=== PATIENT | female | born 1980 | race American Indian/Alaskan Native ===

== ENCOUNTER 2016-09-01 08:01 | Emergency (ER) | payer MEDICAID, OTHER ==
[2016-09-01] MEDS ORDERED: Sodium Chloride 0.9% 10 ML Syringe FLUSH PRN (08:21)
[2016-09-01] MEDS ORDERED: Sodium Chloride 0.9% 1,000 ML IV ONE (08:28)
[2016-09-01] MEDS ORDERED: Ondansetron 4 MG/2 ML SDV IV ONE (08:29)
--- NOTE | 2016-09-01 08:34 | EDM.PDOC ---
ED HPI GENERAL MEDICAL PROBLEM - General Chief Complaint: Gastrointestinal Problem Stated Complaint: SICK Time Seen by Provider: 09/01/16 08:29 Source of Information: Reports: Patient History Limitations: Reports: No Limitations - History of Present Illness INITIAL COMMENTS - FREE TEXT/NARRATIVE: Pt states that she has been having nausea and vomiting since Wednesday. States that she was seen in the ER in [facility] on that date and was sent home with zofran but is having no relief with that medication. States that she usually has these symptoms with alcohol use and eating fast food which she has done this weekend. Denies severe pain but states she has ache in her abdomen from the vomiting. c/o dark urine as well. No other complaints. 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) (zofran) Upper Abdominal Pain Score (Numeric/FACES): 5 - Related Data Allergies Allergy/AdvReac Type Severity Reaction Status Date / Time amoxicillin [Amoxicillin] Allergy Rash Verified 09/01/16 08:07 Home Meds: Home Meds Ondansetron [Zofran ODT] 4 mg PO Q6H PRN #25 tab.dis 10/14/15 [Rx] Past Medical History HEENT History: Reports: Impaired Vision Other HEENT History: wears glasses Cardiovascular History: Reports: Hypertension Respiratory History: Reports: None Gastrointestinal History: Reports: None Genitourinary History: Reports: None 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 Musculoskeletal History: Reports: None Neurological History: Reports: None Psychiatric History: Reports: Anxiety, Panic Attack Endocrine/Metabolic History: Reports: Obesity/BMI 30+ Hematologic History: Reports: None Immunologic History: Reports: None Oncologic (Cancer) History: Reports: None Dermatologic History: Reports: None - Infectious Disease History Infectious Disease History: Reports: Chicken Pox - Past Surgical History Head Surgeries/Procedures: Reports: None GI Surgical History: Reports: Cholecystectomy Social & Family History - Family History Family Medical History: Noncontributory - Tobacco Use Smoking Status *Q: Former Smoker Years of Tobacco use: 7 Packs/Tins Daily: 0.1 Used Tobacco, but Quit: Yes Month Tobacco Last Used: ? Second Hand Smoke Exposure: No - Caffeine Use Caffeine Use: Reports: Soda - Alcohol Use Days Per Week of Alcohol Use: 1 Number of Drinks Per Day: 4 Total Drinks Per Week: 4 Date of Last Drink: 08/29/16 - Recreational Drug Use Recreational Drug Use: Yes Drug Use in Last 12 Months: Yes Recreational Drug Type: Reports: Marijuana/Hashish Recreational Drug Use Frequency: Weekly - Sexual History Sexual History: Reports: Sexually Active - Living Situation & Occupation Living situation: Reports: with Significant Other Occupation: Employed ED ROS GENERAL - Review of Systems Review Of Systems: ROS reveals no pertinent complaints other than HPI. ED EXAM, GI/ABD - Physical Exam Exam: See Below Exam Limited By: No Limitations General Appearance: Alert, WD/WN, No Apparent Distress Eyes: Bilateral: Normal Appearance, EOMI Throat/Mouth: Normal Inspection, Normal Lips, Normal Teeth, Normal Gums, Normal Oropharynx, Normal Voice, No Airway Compromise Respiratory/Chest: No Respiratory Distress, Lungs Clear, Normal Breath Sounds, No Accessory Muscle Use, Chest Non-Tender Cardiovascular: Normal Peripheral Pulses, Regular Rate, Rhythm, No Edema, No Gallop, No JVD, No Murmur, No Rub GI/Abdominal: Normal Bowel Sounds, Soft, No Organomegaly, No Distention, No Abnormal Bruit, No Mass, Tenderness (supra pubic area) Neurological: Alert, Oriented, CN II-XII Intact, Normal Cognition, Normal Gait, Normal Reflexes, No Motor/Sensory Deficits Course - Vital Signs Last Recorded V/S: Last Vital Signs Temp 97.5 F 09/01/16 08:08 Pulse 80 09/01/16 12:00 Resp 16 09/01/16 12:00 BP 133/71 09/01/16 12:00 Pulse Ox 100 09/01/16 12:00 - Orders/Labs/Meds Orders: Active Orders 24 hr Category Date Time Status Oral Fluid Challenge [RC] ASDIRECTED Care 09/01/16 12:03 Active Abdomen Pelvis w Cont [CT] Urgent Exams 09/01/16 08:21 Taken Sodium Chloride 0.9% [Saline Flush] Med 09/01/16 08:21 Active 10 ml FLUSH ASDIRECTED PRN Saline Lock Insert [OM.PC] Stat Oth 09/01/16 08:21 Ordered Medication Orders Sodium Chloride (Saline Flush) 10 ml FLUSH ASDIRECTED PRN PRN Reason: Keep Vein Open Last Admin: 09/01/16 08:42 Dose: 10 ml Labs: Laboratory Tests 09/01/16 09/01/16 09/01/16 Range/Units 08:33 08:33 08:34 WBC 13.5 H (5.0-10.0) 10^3/uL RBC 5.50 H (4.2-5.4) 10^6/uL Hgb 16.9 H (12.0-16.0) g/dL Hct 47.5 H (37.0-47.0) % MCV 86.4 (80-100) fL MCH 30.7 (27.0-34.0) pg MCHC 35.6 H (33.0-35.0) g/dL Plt Count 254 (150-450) 10^3/uL Neut % (Auto) 77.3 H (42.2-75.2) % Lymph % (Auto) 16.7 L (20.5-50.1) % Nance % (Auto) 5.7 (2-8) % Eos % (Auto) 0.2 L (1.0-3.0) % Baso % (Auto) 0.1 (0.0-1.0) % Sodium 137 (135-145) mmol/L Potassium 2.7 L (3.6-5.0) mmol/L Chloride 98 L (101-111) mmol/L Carbon Dioxide 24.0 (21.0-31.0) mmol/L Anion Gap 17.7 BUN 19 H (7-18) mg/dL Creatinine 1.2 (0.6-1.3) mg/dL Est Cr Clr Drug Dosing TNP Estimated GFR (MDRD) 51 Glucose 127 H (74-105) mg/dL Calcium 10.0 (8.4-10.2) mg/dl Amylase 109 H (28-100) U/L Lipase 49 (22-51) U/L Urine Color (YELLOW) Urine Appearance (CLEAR) Urine pH (5.0-9.0) Ur Specific [place] (1.005-1.030) Urine Protein (NEGATIVE) Urine Glucose (UA) (NEGATIVE) Urine Ketones (NEGATIVE) Urine Occult Blood (NEGATIVE) Urine Nitrite (NEGATIVE) Urine Bilirubin (NEGATIVE) Urine Urobilinogen (0.2-1.0) mg/dL Ur Leukocyte Esterase (NEGATIVE) Urine RBC /HPF Urine WBC (0-5/HPF) /HPF Ur Epithelial Cells /HPF Urine Bacteria (0-FEW/HPF) /HPF Urine Mucus /LPF Urine HCG, Qual Negative 09/01/16 Range/Units 08:34 WBC (5.0-10.0) 10^3/uL RBC (4.2-5.4) 10^6/uL Hgb (12.0-16.0) g/dL Hct (37.0-47.0) % MCV (80-100) fL MCH (27.0-34.0) pg MCHC (33.0-35.0) g/dL Plt Count (150-450) 10^3/uL Neut % (Auto) (42.2-75.2) % Lymph % (Auto) (20.5-50.1) % Nance % (Auto) (2-8) % Eos % (Auto) (1.0-3.0) % Baso % (Auto) (0.0-1.0) % Sodium (135-145) mmol/L Potassium (3.6-5.0) mmol/L Chloride (101-111) mmol/L Carbon Dioxide (21.0-31.0) mmol/L Anion Gap BUN (7-18) mg/dL Creatinine (0.6-1.3) mg/dL Est Cr Clr Drug Dosing Estimated GFR (MDRD) Glucose (74-105) mg/dL Calcium (8.4-10.2) mg/dl Amylase (28-100) U/L Lipase (22-51) U/L Urine Color Yellow (YELLOW) Urine Appearance Clear (CLEAR) Urine pH 6.0 (5.0-9.0) Ur Specific [place] 1.020 (1.005-1.030) Urine Protein Trace H (NEGATIVE) Urine Glucose (UA) Negative (NEGATIVE) Urine Ketones Trace H (NEGATIVE) Urine Occult Blood Small H (NEGATIVE) Urine Nitrite Negative (NEGATIVE) Urine Bilirubin Small H (NEGATIVE) Urine Urobilinogen 0.2 (0.2-1.0) mg/dL Ur Leukocyte Esterase Negative (NEGATIVE) Urine RBC 0-5 /HPF Urine WBC 0-5 (0-5/HPF) /HPF Ur Epithelial Cells Many H /HPF Urine Bacteria Moderate H (0-FEW/HPF) /HPF Urine Mucus Moderate H /LPF Urine HCG, Qual Meds: Medications Generic Name Dose Route Start Last Admin Trade Name Freq PRN Reason Stop Dose Admin Sodium Chloride 10 ml 09/01/16 08:21 09/01/16 08:42 Saline Flush FLUSH 10 ml ASDIRECTED PRN Administration Keep Vein Open Discontinued Medications Generic Name Dose Route Start Last Admin Trade Name Freq PRN Reason Stop Dose Admin Sodium Chloride 1,000 mls @ 999 mls/hr 09/01/16 08:28 09/01/16 08:42 Normal Saline IV 09/01/16 09:28 999 mls/hr .BOLUS ONE Administration Potassium Chloride 20 meq/ 100 mls @ 50 mls/hr 09/01/16 09:28 09/01/16 09:54 Premix IV 09/01/16 11:27 50 mls/hr ONETIME ONE Administration Iopamidol 100 ml 09/01/16 08:58 09/01/16 09:47 Isovue-300 (61%) IVPUSH 09/01/16 08:59 100 ml ONETIME ONE Administration Lorazepam 1 mg 09/01/16 09:28 09/01/16 09:49 Ativan IVPUSH 09/01/16 09:29 1 mg ONETIME ONE Administration Metoclopramide HCl 10 mg 09/01/16 08:58 09/01/16 09:09 Reglan IVPUSH 09/01/16 08:59 10 mg ONETIME ONE Administration Nitrofurantoin Macrocrystals 100 mg 09/01/16 10:38 09/01/16 11:10 Macrobid PO 09/01/16 10:39 100 mg ONETIME ONE Administration Ondansetron HCl 4 mg 09/01/16 08:29 09/01/16 08:42 Zofran IV 09/01/16 08:30 4 mg ONETIME ONE Administration - Re-Assessments/Exams Free Text/Narrative Re-Assessment/Exam: 09/01/16 10:53 Pt currently sleeping on stretcher comfortably 09/01/16 12:16 Per Rn , pt tolerated PO challenge. No vomiting noted. Pt appears better. Will dc terrance with instructions to return if no improvement with medication in 1 day Departure - Departure Time of Disposition: 12:17 Disposition: Home, Self-Care 01 Clinical Impression: Vomiting, UTI, Urinary tract infectious disease, Hypokalemia - Discharge Information Instructions: Food Choices to Help Relieve Diarrhea, Adult, Nausea and Vomiting , Adult, [id number], Dehydration, Adult, [id number], Urinary Tract Infection , Adult Forms: ED Department Discharge Additional Instructions: Take the macrobid twice a day for 5 days for your urinary tract infection. You' ve had one dose for today so take one more later today. use the Phenergan as needed for nausea/vomiting. return if no improvement in 1 day. Eat bland foods and adhere to the B.R.A.T (bananas, rice, apples, toast) diet to rest the stomach. Your potassium levels were low and you were given replacements. Continue to take your other scheduled medication as prescribed. Drink plenty of fluids - My Orders Last 24 Hours: My Active Orders 09/01/16 08:21 Abdomen Pelvis w Cont [CT] Urgent Sodium Chloride 0.9% [Saline Flush] 10 ml FLUSH ASDIRECTED PRN Saline Lock Insert [OM.PC] Stat 09/01/16 12:03 Oral Fluid Challenge [RC] ASDIRECTED - Assessment/Plan Last 24 Hours: My Active Orders 09/01/16 08:21 Abdomen Pelvis w Cont [CT] Urgent Sodium Chloride 0.9% [Saline Flush] 10 ml FLUSH ASDIRECTED PRN Saline Lock Insert [OM.PC] Stat 09/01/16 12:03 Oral Fluid Challenge [RC] ASDIRECTED
[2016-09-01] MEDS ORDERED: Iopamidol 612 MG/ML 100 ML Bottle IVPUSH ONE (08:58)
[2016-09-01] MEDS ORDERED: Metoclopramide 10 MG/2 ML SDV IVPUSH ONE (08:58)
[2016-09-01 09:03] LABS: CHLORIDE,CL 98 mmol/L (101-111); SODIUM,NA 137 mmol/L (135-145)
[2016-09-01] MEDS ORDERED: Potassium Chloride 20 MEQ in Premix Bag 1 BAG IV ONE (09:28)
[2016-09-01] MEDS ORDERED: LORazepam 2 MG/ML Syringe IVPUSH ONE (09:28)
[2016-09-01] MEDS ORDERED: Nitrofurantoin Monohydrate/Macrocrystalline 100 MG Cap PO ONE (10:38)
[2016-09-01 12:01] VITALS: BP 133/71
== END 2016-09-01 12:19 | disposition home or self-care (01) ==
LOC: DL.ED 08:01
DX: R11.2 Nausea with vomiting, unspecified (principal); N39.0 Urinary tract infection, site not specified; E87.6 Hypokalemia; I10 Essential (primary) hypertension; E66.9 Obesity, unspecified; F41.9 Anxiety disorder, unspecified; Z88.1 Allergy status to other antibiotic agents; Z87.891 Personal history of nicotine dependence; F15.980 Other stimulant use, unspecified with stimulant-induced anxiety disorder
CPT/HCPCS: 36415; 74177; 80048; 81001; 81025; 82150; 83690; 85025; 96361; 96365; 96366; 96375; 99284; A9270; J2060; J2405; J2765; J3480; J7030; J7050; Q9967

== ENCOUNTER 2016-10-07 11:24 | Observation (INO) | payer OTHER ==
[2016-10-07] MEDS ORDERED: Ondansetron 4 MG Tab.DIS PO PRN (12:29)
[2016-10-07] MEDS ORDERED: Acetaminophen 325 MG Tab PO PRN (12:47)
[2016-10-07] MEDS ORDERED: oxyCODONE 5 MG Tab PO PRN (12:47)
[2016-10-07] MEDS ORDERED: Zolpidem 5 MG Tab PO PRN (12:47)
[2016-10-07] MEDS ORDERED: Sodium Chloride 0.9% 10 ML Syringe FLUSH PRN (12:47)
[2016-10-07] MEDS ORDERED: Ondansetron 4 MG/2 ML SDV IVPUSH PRN (12:47)
--- NOTE | 2016-10-07 12:56 | PCM.HP ---
H&P History of Present Illness - General Date of Service: 10/07/16 Admit Problem/Dx: Admission Diagnosis/Problem Admission Diagnosis/Problem Nausea and vomiting Source of Information: Patient - History of Present Illness Initial Comments - Free Text/Narative: the patient is a 36-year-old lady with a history of prior cholecystectomy, recurrent episodes of nausea and vomiting. She has had similar episodes for years. Usually get better in a few days with antiemetics. She was hospitalized at [place] and has had ER visits multiple times without specific significant findings. during these episodes she is usually found to have hypokalemia and hypertension. She also has a history of anxiety disorder. She says she normally is not taking any medications. She is using alcohol and marijuana fairly regularly. The patient developed nausea and vomiting a few days ago. was seen in the clinic, was noted to have hypokalemia, was treated with IV fluids potassium supplement and Zofran. The first time of the nausea and vomiting was actually over the weekend. She is somewhat improved since that unable to eat still. She is also mentioning chest "flutter" which comes when she gets anxious with the nausea and vomiting. Otherwise she has no history of chest pain of cardiac disease. She had no pulmonary disease in the past. - Related Data Allergies/Adverse Reactions: Allergies Allergy/AdvReac Type Severity Reaction Status Date / Time amoxicillin [Amoxicillin] Allergy Rash Verified 10/07/16 12:59 Home Medications: Home Meds Multivitamin [Multi-Vitamin Daily] 1 tab PO DAILY 10/07/16 [History] Ondansetron HCl [Zofran] 8 mg PO Q8H PRN 10/07/16 [History] Ondansetron [Zofran ODT] 4 mg PO Q8HR PRN 10/07/16 [History] Potassium Chloride 1 tab PO BID 10/07/16 [History] Sertraline [Zoloft] 25 mg PO DAILY 10/07/16 [History] Past Medical History HEENT History: Reports: Impaired Vision Other HEENT History: wears glasses Cardiovascular History: Reports: Hypertension Respiratory History: Reports: None Gastrointestinal History: Reports: None Genitourinary History: Reports: None 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: Musculoskeletal History: Reports: None Neurological History: Reports: None Psychiatric History: Reports: Anxiety, Panic Attack Endocrine/Metabolic History: Reports: Obesity/BMI 30+ Hematologic History: Reports: None Immunologic History: Reports: None Oncologic (Cancer) History: Reports: None Dermatologic History: Reports: None - Infectious Disease History Infectious Disease History: Reports: Chicken Pox, MRSA 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 - Past Surgical History Head Surgeries/Procedures: Reports: None GI Surgical History: Reports: Cholecystectomy Social & Family History - Family History Family Medical History: Noncontributory - Tobacco Use Smoking Status *Q: Current Every Day Smoker Years of Tobacco use: 16 Packs/Tins Daily: 0.4 Used Tobacco, but Quit: Yes Month Tobacco Last Used: ? Second Hand Smoke Exposure: No - Caffeine Use Caffeine Use: Reports: None - Alcohol Use Days Per Week of Alcohol Use: 1 Number of Drinks Per Day: 4 Total Drinks Per Week: 4 - Recreational Drug Use Recreational Drug Use: No Drug Use in Last 12 Months: Yes Recreational Drug Type: Reports: Marijuana/Hashish Recreational Drug Use Frequency: Weekly - Sexual History Sexual History: Reports: Sexually Active - Living Situation & Occupation Living situation: Reports: with Significant Other Occupation: Employed H&P Review of Systems - Review of Systems: Review Of Systems: See Below General: Denies: Fever Pulmonary: Denies: Shortness of Breath Cardiovascular: Reports: Palpitations. Denies: Chest Pain, Edema Gastrointestinal: Reports: Nausea, Vomiting (Yellow appearing). Denies: Abdominal Pain Genitourinary: Denies: Dysuria Psychiatric: Denies: Confusion Neurological: Denies: Dizziness, Headache, Syncope Exam - Exam Exam: See Below - Vital Signs Vital Signs: Last Vital Signs Temp 37.2 C 10/07/16 11:31 Pulse 78 10/07/16 11:31 Resp 20 10/07/16 11:31 BP 154/114 H 10/07/16 11:31 Pulse Ox 100 10/07/16 12:47 Weight: 76.226 kg - Exam General: Alert, Oriented Neck: Supple Lungs: Clear to Auscultation, Normal Respiratory Effort Cardiovascular: Regular Rate, Regular Rhythm GI/Abdominal Exam: Normal Bowel Sounds, Soft, Non-Tender, No Distention Extremities: No Pedal Edema - Patient Data Lab Results Last 24 hrs: Results for YOGI ZHENG ( ) as of 10/07/2016 12:56 Ref. Range 08/30/2016 14:30 10/05/2016 10:23 10/07/2016 08:53 Troponin I Latest Ref Range: 0.00 - 0.07 ng/mL <0.02 BUN Latest Ref Range: 7 - 18 mg/dL 9 25 (H) 13 Sodium Latest Ref Range: 136 - 145 mmol/L 139 136 136 Potassium Latest Ref Range: 3.5 - 5.1 mmol/L 3.6 2.9 (LL) 3.1 (L) Chloride Latest Ref Range: 98 - 107 mmol/L 104 97 (L) 96 (L) CO2 Latest Ref Range: 21.0 - 32.0 mmol/L 19.8 (L) 22.2 25.2 SERUM GLUCOSE Latest Ref Range: 70 - 99 mg/dL 144 (H) 126 (H) 106 (H) Creatinine Latest Ref Range: 0.6 - 1.0 mg/dL 0.9 1.2 (H) 1.1 (H) Calcium Latest Ref Range: 8.5 - 10.1 mg/dL 10.0 10.4 (H) 9.8 ANION GAP Latest Ref Range: 5.0 - 13.0 mmol/L 15.2 (H) 16.8 (H) 14.8 (H) GFR Calculated Latest Units: mL/min/1.73 sq m >60 51 57 SERUM ALBUMIN Latest Ref Range: 3.40 - 5.00 g/dL 5.00 (H) 4.90 Alkaline Phosphatase Latest Ref Range: 46 - 116 U/L 58 61 Total Protein Latest Ref Range: 6.4 - 8.2 g/dL 8.3 (H) 8.8 (H) Total Bilirubin Latest Ref Range: 0.1 - 1.0 mg/dL 0.7 1.3 (H) Bilirubin Direct Latest Ref Range: 0.0 - 0.5 mg/dL 0.2 AST Latest Ref Range: 15 - 37 U/L 23 27 ALT Latest Ref Range: 12 - 52 U/L 28 33 Results for YOGI ZHENG ( ) as of 10/07/2016 12:56 Ref. Range 08/30/2016 14:30 10/05/2016 10:23 10/07/2016 08:53 WBC Latest Ref Range: 3.60 - 11.00 K/uL 14.31 (H) 15.20 (H) 11.40 (H) RBC Latest Ref Range: 3.80 - 5.40 M/uL 5.59 (H) 5.73 (H) 5.79 (H) Hemoglobin Latest Ref Range: 12.0 - 16.0 g/dL 17.4 (H) 18.3 (H) 18.1 (H) Hematocrit Latest Ref Range: 35.0 - 49.0 % 47.7 (H) 49.7 (H) 50.4 (H) MCV Latest Ref Range: 80.0 - 100.0 fL 85.3 86.7 87.0 MCH Latest Ref Range: 26.0 - 34.0 pg 31.1 32.0 31.3 MCHC Latest Ref Range: 32.0 - 36.0 g/dL 36.5 (H) 36.9 (H) 36.0 RDW Latest Ref Range: 37.0 - 50.0 fL 37.3 Platelets Latest Ref Range: 150 - 450 K/L 282 304 253 MPV Latest Ref Range: 8.0 - 13.0 fL 9.9 8.5 8.5 nRBC Latest Ref Range: 0.0 - 0.2 #/100 0.0 RDW CV Latest Ref Range: 11.5 - 14.0 % 12.0 11.9 EKG per my reading shows sinus rhythm at the rate of [address] changes *Q Meaningful Use (ADM) - VTE *Q VTE Criteria *Q: - Stroke *Q Stroke Criteria *Q: - AMI *Q AMI Criteria *Q: - Problem List (1) Anxiety SNOMED Code(s): 60831128 ICD Code: F41.9 - ANXIETY DISORDER, UNSPECIFIED Status: Acute Current Visit: No (2) Hypokalemia SNOMED Code(s): 44991615 ICD Code: E87.6 - HYPOKALEMIA Status: Acute Current Visit: No (3) Intractable nausea and vomiting SNOMED Code(s): 077480064, 855520111 ICD Code: R11.2 - NAUSEA WITH VOMITING, UNSPECIFIED Status: Acute Priority: High Current Visit: No Qualifiers: Vomiting type: unspecified Qualified Code(s): R11.2 - Nausea with vomiting , unspecified Problem List Initiated/Reviewed/Updated: Yes Orders Last 24hrs: Active Orders 24 hr Category Date Time Status Patient Status [ADT] Routine ADT 10/07/16 12:47 Ordered Antiembolic Devices [RC] PER UNIT ROUTINE Care 10/07/16 12:48 Ordered Oxygen Therapy [RC] PRN Care 10/07/16 12:47 Ordered Peripheral IV Care [RC] . DIRECTED Care 10/07/16 12:48 Ordered Up With Assistance [RC] ASDIRECTED Care 10/07/16 12:47 Ordered VTE/DVT Education [RC] PER UNIT ROUTINE Care 10/07/16 12:47 Ordered Vital Signs [RC] Q4H Care 10/07/16 12:47 Ordered Clear Liquid Diet [DIET] Diet 10/07/16 Dinner Ordered BASIC METABOLIC PANEL,BMP [CHEM] AM Lab 10/08/16 05:15 Ordered CBC WITH AUTO DIFF [HEME] AM Lab 10/08/16 05:15 Ordered DRUG SCREEN, URINE [URCHEM] Routine Lab 10/07/16 12:37 Uncollected HCG QUALITATIVE,URINE [URCHEM] Routine Lab 10/07/16 12:38 Uncollected HEPATIC FUNCTION PANEL,HFP [CHEM] AM Lab 10/08/16 05:11 Ordered TROPONIN I [CHEM] Routine Lab 10/07/16 12:32 Ordered TROPONIN I [CHEM] Routine Lab 10/07/16 18:00 Ordered Acetaminophen [Tylenol] Med 10/07/16 12:47 Ordered 650 mg PO Q4H PRN Heparin Sodium Med 10/07/16 14:00 Ordered 5,000 units SUBCUT Q8HR Lisinopril [Prinivil] Med 10/08/16 09:00 Ordered 10 mg PO DAILY Multivitamin [Multi-Vitamin Daily] Med 10/08/16 09:00 Ordered 1 tab PO DAILY Ondansetron [Zofran ODT] Med 10/07/16 12:29 Ordered 4 mg PO Q8HR PRN Ondansetron [Zofran] Med 10/07/16 12:47 Ordered 4 mg IVPUSH Q6H PRN Pantoprazole [ProTONIX] Med 10/07/16 12:45 Ordered 40 mg PO ACBREAKFAST Potassium Chloride [KCl 10 MEQ in Water 100 ML] 10 meq Med 10/07/16 12:45 Ordered Premix Bag 1 bag IV .Q2H Sertraline [Zoloft] Med 10/08/16 09:00 Ordered 25 mg PO DAILY Sodium Chloride 0.9% [Saline Flush] Med 10/07/16 12:47 Ordered 10 ml FLUSH ASDIRECTED PRN Sodium Chloride 0.9% with KCl 20 mEq @ 125 mL/Hr (1000 Med 10/07/16 12:45 Ordered mL) NS + KCl 20mEq/L [Normal Saline with 20 mEq KCl] 1,000 ml IV ASDIRECTED Zolpidem [Ambien] Med 10/07/16 12:47 Ordered 5 mg PO BEDTIME PRN oxyCODONE Med 10/07/16 12:47 Ordered 5 mg PO Q4H PRN Peripheral IV Insertion Adult [OM.PC] Routine Oth 10/07/16 12:47 Ordered Sequential Compression Device [OM.PC] Per Unit Routine Oth 10/07/16 12:48 Ordered Resuscitation Status Routine Resus Stat 10/07/16 12:47 Ordered Medication Orders Acetaminophen (Tylenol) 650 mg PO Q4H PRN PRN Reason: Pain (Mild 1-3)/fever Heparin Sodium (Porcine) (Heparin Sodium) 5,000 units SUBCUT Q8HR KELSEA Potassium Chloride/Sodium Chloride (Normal Saline With 20 Meq Kcl) 1,000 mls @ 125 mls/hr IV ASDIRECTED KELSEA Potassium Chloride 10 meq/ (Premix) 100 mls @ 50 mls/hr IV .Q2H K[facility]SEA Lisinopril (Prinivil) 10 mg PO DAILY K[facility]SEA Non-Formulary Medication (Multivitamin [Multi-Vitamin Daily]) 1 tab PO DAILY K[facility]SEA Non-Formulary Medication (Sertraline [Zoloft]) 25 mg PO DAILY K[facility]SEA Ondansetron HCl (Zofran Odt) 4 mg PO Q8HR PRN PRN Reason: Nausea Ondansetron HCl (Zofran) 4 mg IVPUSH Q6H PRN PRN Reason: Nausea/Vomiting Oxycodone HCl (Oxycodone) 5 mg PO Q4H PRN PRN Reason: Pain (moderate 4-6) Pantoprazole Sodium (Protonix) 40 mg PO ACBREAKFAST KELSEA Sodium Chloride (Saline Flush) 10 ml FLUSH ASDIRECTED PRN PRN Reason: Keep Vein Open Zolpidem Tartrate (Ambien) 5 mg PO BEDTIME PRN PRN Reason: Sleep Assessment/Plan Comment:: nausea and vomiting This appears to be a recurrent syndrome over the past years. Etiology is unclear. This might relate to a diet with a history of cholecystectomy, possible marijuana and alcohol use possible gastritis, for now we will treat the patient symptomatically Will give IV fluids, Protonix, antiemetics Monitor symptoms Hypokalemia Will replace that and recheck Give IV replacement Hypertension This appears to be a recurrent, for now start lisinopril Monitor and adjust medications as needed Anxiety treat with Zoloft chest flutter, palpitation Likely nausea, vomiting, anxiety related Will repeat a troponin DVT prophylaxis with subcutaneous heparin
[2016-10-07] MEDS: Pantoprazole 40 MG Tab.CR PO SCH (14:08)
[2016-10-07] MEDS: Heparin Sodium 5,000 Units/ML Vial SUBCUT SCH ×2 (14:08→21:53)
[2016-10-07] MEDS: NS + KCl 20mEq/L 1,000 ML IV SCH ×2 (14:12→23:54)
[2016-10-07] MEDS: Potassium Chloride 10 MEQ in Premix Bag 1 BAG IV SCH ×4 (14:12→21:54)
[2016-10-07] MEDS ORDERED: amLODIPine 5 MG Tab PO ONE (22:06)
[2016-10-07] MEDS ORDERED: Potassium Chloride 10 MEQ in Premix Bag 1 BAG IV ONE (23:45)
[2016-10-08] MEDS: Potassium Chloride 10 MEQ in Premix Bag 1 BAG IV SCH (00:31)
[2016-10-08] MEDS: Heparin Sodium 5,000 Units/ML Vial SUBCUT SCH (06:16)
[2016-10-08] MEDS: Pantoprazole 40 MG Tab.CR PO SCH (06:16)
[2016-10-08 07:17] LABS: CHLORIDE,CL 103 mmol/L (101-111); SODIUM,NA 137 mmol/L (135-145)
[2016-10-08] MEDS ORDERED: Sertraline 50 MG Tab PO SCH (09:00)
[2016-10-08] MEDS ORDERED: Lisinopril 10 MG Tab PO SCH (09:00)
[2016-10-08] MEDS ORDERED: Multivitamins,Therapeutic Tab PO SCH (09:00)
--- NOTE | 2016-10-08 10:24 | PCM.DCSUM1 ---
Discharge Summary - Hospital Course Free Text/Narrative:: the patient is a 36-year-old lady with a history of prior cholecystectomy, recurrent episodes of nausea and vomiting. She has had similar episodes for years. Usually gets better in a few days with antiemetics. She was hospitalized at [place] and has had ER visits multiple times without specific significant findings. during these episodes she is usually found to have hypokalemia and hypertension. She also has a history of anxiety disorder. She says she normally is not taking any medications. She is using alcohol and marijuana fairly regularly. The patient developed nausea and vomiting a few days ago. was seen in the clinic, was noted to have hypokalemia, was treated with IV fluids potassium supplement and Zofran. The first time of the nausea and vomiting was actually over the weekend. She is somewhat improved since that unable to eat still. She is also mentioning chest "flutter" which comes when she gets anxious with the nausea and vomiting. Otherwise she has no history of chest pain of cardiac disease. She had no pulmonary disease in the past. nausea and vomiting This appears to be a recurrent syndrome over the past years. Etiology is unclear. This might relate to a diet with a history of cholecystectomy, possible marijuana and alcohol use possible gastritis, improved with IV fluids, Protonix, antiemetics symptoms improved Hypokalemia Gave IV replacement cont PO supplement recheck in a few days Hypertension This appears to be a recurrent, started lisinopril Monitor and adjust medications as needed as out pt Anxiety treat with Zoloft chest flutter, palpitation Likely nausea, vomiting, anxiety related negative troponins, no further symptoms - Discharge Data Discharge Date: 10/08/16 Discharge Disposition: Home, Self-Care 01 Condition: Good - Discharge Diagnosis/Problem(s) (1) Anxiety SNOMED Code(s): 73087582 ICD Code: F41.9 - ANXIETY DISORDER, UNSPECIFIED Status: Acute Current Visit: No (2) Hypokalemia SNOMED Code(s): 92222816 ICD Code: E87.6 - HYPOKALEMIA Status: Acute Current Visit: No (3) Intractable nausea and vomiting SNOMED Code(s): 819724746, 056709740 ICD Code: R11.2 - NAUSEA WITH VOMITING, UNSPECIFIED Status: Acute Priority: High Current Visit: No Qualifiers: Vomiting type: unspecified Qualified Code(s): R11.2 - Nausea with vomiting , unspecified - Patient Instructions Diet: Usual Diet as Tolerated Activity: As Tolerated - Discharge Plan Prescriptions/Med Rec: Pantoprazole [ProTONIX] 40 mg PO ACBREAKFAST #30 tab.cr Home Medications: Home Meds Multivitamin [Multi-Vitamin Daily] 1 tab PO DAILY 10/07/16 [History] Ondansetron [Zofran ODT] 4 mg PO Q8HR PRN 10/07/16 [History] Potassium Chloride 1 tab PO BID 10/07/16 [History] Sertraline [Zoloft] 25 mg PO DAILY 10/07/16 [History] Lisinopril [Prinivil] 10 mg PO DAILY #0 tablet 10/08/16 [Rx] Pantoprazole [ProTONIX] 40 mg PO ACBREAKFAST #30 tab.cr 10/08/16 [Rx] Patient Handouts: Hypokalemia, Nausea and Vomiting, Adult Referrals: Ian Ybarra NP [Ordering Only Provider] - (in 3 days) - Discharge Summary/Plan Comment DC Time >30 min.: No - General Info Admission Dx/Problem (Free Text: Admission Diagnosis/Problem Admission Diagnosis/Problem Nausea and vomiting - Review of Systems General: Denies: Fever, Weakness Pulmonary: Denies: Shortness of Breath Cardiovascular: Denies: Chest Pain Gastrointestinal: Denies: Abdominal Pain - Patient Data Vitals - Most Recent: Last Vital Signs Temp 36.9 C 10/08/16 08:14 Pulse 70 10/08/16 08:14 Resp 20 10/08/16 08:14 BP 152/100 H 10/08/16 09:55 Pulse Ox 100 10/08/16 08:14 Weight - Most Recent: 76.226 kg I&O - Last 24 hours: Intake & Output 10/07/16 10/08/16 10/08/16 22:59 06:59 14:59 Intake Total 203 800 Output Total 400 Balance 203 400 Lab Results - Last 24 hrs: Laboratory Results - last 24 hr 10/07/16 10/07/16 10/07/16 Range/Units 13:07 14:05 14:05 WBC (5.0-10.0) 10^3/uL RBC (4.2-5.4) 10^6/uL Hgb (12.0-16.0) g/dL Hct (37.0-47.0) % MCV (80-100) fL MCH (27.0-34.0) pg MCHC (33.0-35.0) g/dL Plt Count (150-450) 10^3/uL Neut % (Auto) (42.2-75.2) % Lymph % (Auto) (20.5-50.1) % Barton % (Auto) (2-8) % Eos % (Auto) (1.0-3.0) % Baso % (Auto) (0.0-1.0) % Sodium (135-145) mmol/L Potassium (3.6-5.0) mmol/L Chloride (101-111) mmol/L Carbon Dioxide (21.0-31.0) mmol/L Anion Gap BUN (7-18) mg/dL Creatinine (0.6-1.3) mg/dL Est Cr Clr Drug Dosing mL/min Estimated GFR (MDRD) Glucose (74-105) mg/dL Calcium (8.4-10.2) mg/dl Total Bilirubin (0.2-1.0) mg/dL Direct Bilirubin (0.0-0.2) mg/dL Indirect Bilirubin AST (10-42) IU/L ALT (10-60) IU/L Alkaline Phosphatase (42-121) IU/L Troponin I < 0.02 (0.00-0.02) ng/ml Total Protein (6.7-8.2) g/dl Albumin (3.2-5.5) g/dl Globulin Albumin/Globulin Ratio Urine HCG, Qual Negative Urine Opiates Screen Negative (NEGATIVE) Ur Oxycodone Screen Negative (NEGATIVE) Urine Methadone Screen Negative (NEGATIVE) Ur Barbiturates Screen Negative (NEGATIVE) U Tricyclic Antidepress Negative (NEGATIVE) Ur Phencyclidine Scrn Negative (NEGATIVE) Ur Amphetamine Screen Negative (NEGATIVE) U Methamphetamines Scrn Negative (NEGATIVE) Urine MDMA Screen Negative (NEGATIVE) U Benzodiazepines Scrn Negative (NEGATIVE) Urine Cocaine Screen Negative (NEGATIVE) U Marijuana (THC) Screen Positive H (NEGATIVE) 10/07/16 10/08/16 10/08/16 Range/Units 18:10 06:34 06:34 WBC 10.8 H (5.0-10.0) 10^3/uL RBC 5.37 (4.2-5.4) 10^6/uL Hgb 16.7 H (12.0-16.0) g/dL Hct 45.7 (37.0-47.0) % MCV 85.1 (80-100) fL MCH 31.1 (27.0-34.0) pg MCHC 36.5 H (33.0-35.0) g/dL Plt Count 245 (150-450) 10^3/uL Neut % (Auto) 66.0 (42.2-75.2) % Lymph % (Auto) 24.7 (20.5-50.1) % Barton % (Auto) 8.7 H (2-8) % Eos % (Auto) 0.4 L (1.0-3.0) % Baso % (Auto) 0.2 (0.0-1.0) % Sodium 137 (135-145) mmol/L Potassium 3.5 L (3.6-5.0) mmol/L Chloride 103 (101-111) mmol/L Carbon Dioxide 22.0 (21.0-31.0) mmol/L Anion Gap 15.5 BUN 9 (7-18) mg/dL Creatinine 0.7 (0.6-1.3) mg/dL Est Cr Clr Drug Dosing 85.45 mL/min Estimated GFR (MDRD) > 60 Glucose 97 (74-105) mg/dL Calcium 8.9 (8.4-10.2) mg/dl Total Bilirubin 2.2 H (0.2-1.0) mg/dL Direct Bilirubin 0.5 H (0.0-0.2) mg/dL Indirect Bilirubin 1.7 AST 60 H (10-42) IU/L ALT 129 H (10-60) IU/L Alkaline Phosphatase 51 (42-121) IU/L Troponin I < 0.02 (0.00-0.02) ng/ml Total Protein 7.0 (6.7-8.2) g/dl Albumin 4.2 (3.2-5.5) g/dl Globulin 2.8 Albumin/Globulin Ratio 1.50 Urine HCG, Qual Urine Opiates Screen (NEGATIVE) Ur Oxycodone Screen (NEGATIVE) Urine Methadone Screen (NEGATIVE) Ur Barbiturates Screen (NEGATIVE) U Tricyclic Antidepress (NEGATIVE) Ur Phencyclidine Scrn (NEGATIVE) Ur Amphetamine Screen (NEGATIVE) U Methamphetamines Scrn (NEGATIVE) Urine MDMA Screen (NEGATIVE) U Benzodiazepines Scrn (NEGATIVE) Urine Cocaine Screen (NEGATIVE) U Marijuana (THC) Screen (NEGATIVE) Med Orders - Current: Current Medications Acetaminophen (Tylenol) 650 mg PO Q4H PRN PRN Reason: Pain (Mild 1-3)/fever Heparin Sodium (Porcine) (Heparin Sodium) 5,000 units SUBCUT Q8HR [facility] Last Admin: 10/08/16 06:16 Dose: 5,000 units Potassium Chloride/Sodium Chloride (Normal Saline With 20 Meq Kcl) 1,000 mls @ 125 mls/hr IV ASDIRECTED [facility] Last Admin: 10/07/16 23:54 Dose: 125 mls/hr Lisinopril (Prinivil) 10 mg PO DAILY [facility] Last Admin: 10/08/16 09:55 Dose: 10 mg Multivitamins (Thera) 1 each PO DAILY [facility] Last Admin: 10/08/16 09:55 Dose: 1 each Ondansetron HCl (Zofran Odt) 4 mg PO Q8HR PRN PRN Reason: Nausea Last Admin: 10/07/16 22:16 Dose: 4 mg Ondansetron HCl (Zofran) 4 mg IVPUSH Q6H PRN PRN Reason: Nausea/Vomiting Oxycodone HCl (Oxycodone) 5 mg PO Q4H PRN PRN Reason: Pain (moderate 4-6) Pantoprazole Sodium (Protonix) 40 mg PO ACBREAKFAST [facility] Last Admin: 10/08/16 06:16 Dose: 40 mg Sertraline HCl (Zoloft) 25 mg PO DAILY [facility] Last Admin: 10/08/16 09:55 Dose: 25 mg Sodium Chloride (Saline Flush) 10 ml FLUSH ASDIRECTED PRN PRN Reason: Keep Vein Open Zolpidem Tartrate (Ambien) 5 mg PO BEDTIME PRN PRN Reason: Sleep Last Admin: 10/07/16 20:08 Dose: 5 mg Discontinued Medications Amlodipine Besylate (Norvasc) 5 mg PO ONETIME ONE Stop: 10/07/16 22:07 Last Admin: 10/07/16 22:16 Dose: 5 mg Potassium Chloride 10 meq/ (Premix) 100 mls @ 50 mls/hr IV Q2H [place] Stop: 10/07/16 23:59 Last Admin: 10/08/16 00:31 Dose: 50 mls/hr Potassium Chloride 10 meq/ (Premix) 100 mls @ 50 mls/hr IV ONETIME ONE Stop: 10/08/16 01:44 Last Admin: 10/08/16 00:31 Dose: Not Given - Exam General: Reports: Alert, Oriented Neck: Reports: Supple Lungs: Reports: Clear to Auscultation, Normal Respiratory Effort Cardiovascular: Reports: Regular Rate, Regular Rhythm GI/Abdominal Exam: Normal Bowel Sounds, Soft, Non-Tender, Other (obese) Skin: Reports: Warm, Dry *Q Meaningful Use (DIS) - VTE *Q VTE Criteria *Q: - Stroke *Q Stroke Criteria *Q: - AMI *Q AMI Criteria *Q:
[2016-10-08 10:57] VITALS: BP 146/99
--- NOTE | 2016-10-13 09:44 | EKG ---
10/07/2016- YOGI ZHENG - EKG per my reading shows sinus rhythm at the rate of [address] [facility] /[id number]
== END 2016-10-08 11:10 | disposition home or self-care (01) ==
LOC: UNDOADMOB 11:27 → DL.MS 11:27 → EEVIPCON 12:47 → DL.MS 12:47
PROVIDERS: ADMIT Internal Medicine; ATTEND Internal Medicine
DX: F41.9 Anxiety disorder, unspecified (principal); E87.6 Hypokalemia; R11.2 Nausea with vomiting, unspecified; I10 Essential (primary) hypertension; Z88.1 Allergy status to other antibiotic agents; E66.9 Obesity, unspecified; Z68.30 Body mass index [BMI] 30.0-30.9, adult; F17.210 Nicotine dependence, cigarettes, uncomplicated; Z90.49 Acquired absence of other specified parts of digestive tract; Z79.899 Other long term (current) drug therapy
CPT/HCPCS: 36415; 80048; 80076; 80305; 81025; 84484; 85025; 93005; 96361; 96365; 96366; 96372; A9270; G0378; J1644; J3480

== ENCOUNTER 2016-10-16 06:45 | Day surgery (SDC) | payer OTHER ==
[~2016-10-16 06:45] MED LIST: Midazolam 1 MG/ML 2 ML SDV ONE; fentaNYL 100 MCG/2 ML SDV ONE
[2016-10-16] MEDS ORDERED: Sodium Chloride 0.9% 10 ML Syringe FLUSH PRN (07:00)
[2016-10-16] MEDS ORDERED: Dextrose 5%-0.45% NaCl 1,000 ML IV SCH (07:00)
[2016-10-16] MEDS ORDERED: fentaNYL 100 MCG/2 ML SDV IV ONE ×3 (07:18→16:33)
[2016-10-16] MEDS ORDERED: Midazolam 1 MG/ML 2 ML SDV IV ONE ×3 (07:19→16:33)
--- NOTE | 2016-10-16 08:37 | OR ---
DATE: 10/16/2016 PROCEDURE: Esophagogastroduodenoscopy and multiple pinch biopsies. INSTRUMENT USED: GIF-Q180 Olympus video panendoscope. PREMEDICATIONS: No oral topical anesthesia used. Fentanyl 100 mcg intravenous, Versed 2 mg intravenous. The procedure was done under pulse oximetry, BP recording, and carbide powder processor. INDICATION: The patient with longstanding intermittent abdominal pain, nausea, and episodes of vomiting, unexplained, and not responsive to medical measures. Esophagogastroduodenoscopy is performed for detection of any active erosive lesions, malignancy also under consideration, H. pylori status to be determined, small bowel biopsies to be obtained if indicated, endoscopic hemostasis therapy if needed. The scope was passed with ease. Adequate visualization of the esophagus was made from proximal to distal areas. No upper esophageal lesions identified. No distal esophageal stricture. No uphill or downhill esophageal varices. No Nichole Darnell tear. No evidence of erosive esophagitis by [place] criteria. No esophageal polyp or tumor mass identified. Z-line was seen at around 39 cm distal to the oral verge, configuration consistent with grade 1 by ZAP classification. No esophageal polyp or tumor identified. No proximal gastric varices noted. Gastric fundus examination by retroflexion showed no polypoid lesions. No gastric ulcer, malignant mass, or vascular ectasia identified. Duodenal bulb showed no ulcer. Visualized second part of the duodenum was unremarkable. Multiple pinch biopsies 4 in number were taken from different areas of the 2nd part of the duodenum and tissues were also obtained from the duodenal bulb at 9 and 12 o'clock positions and sent for any histopathologic evidence of celiac disease. Multiple pinch biopsies were obtained from the gastric antrum and proximal body and sent for PyloriTek test for H. pylori and histopathology. No bleeding was noted from any of the visualized areas at the completion of examination. Photographs were taken of the duodenal bulb, gastric antrum, fundus, and distal esophagus. IMPRESSION: Normal study. The patient tolerated the procedure well. [facility] /[id number]
[2016-10-16 09:31] VITALS: BP 128/82
== END 2016-10-16 09:30 | disposition home or self-care (01) ==
LOC: DL.ENDO 06:45
PROVIDERS: ATTEND Internal Medicine Gastroenterology
DX: K29.50 Unspecified chronic gastritis without bleeding (principal); E66.9 Obesity, unspecified; I10 Essential (primary) hypertension; Z90.49 Acquired absence of other specified parts of digestive tract; Z88.1 Allergy status to other antibiotic agents
CPT/HCPCS: 43239; 87077; J2250; J3010; J7042

== ENCOUNTER 2017-11-05 07:22 | Emergency (ER) | payer OTHER ==
[2017-11-05] MEDS ORDERED: Ondansetron 4 MG/2 ML SDV IV ONE (07:32)
[2017-11-05] MEDS ORDERED: Sodium Chloride 0.9% 1,000 ML IV ONE (07:32)
[2017-11-05 07:42] VITALS: BP 184/114
--- NOTE | 2017-11-05 08:10 | EDM.PDOC ---
ED HPI GENERAL MEDICAL PROBLEM - General Chief Complaint: Gastrointestinal Problem Stated Complaint: SICK Time Seen by Provider: 11/05/17 07:35 Source of Information: Reports: Patient History Limitations: Reports: No Limitations - History of Present Illness INITIAL COMMENTS - FREE TEXT/NARRATIVE: This 37 yo female patient reports to the ED with upper abdominal pain, nausea and vomiting. The patient reports her symptoms have been on and off for the past month. The patient reports this current episode started yesterday morning at about 0500, went away yesterday, but came back during the night. The patient reports that she has seen "a bunch of doctors for this." The patient reports they did put her on some medications for her anxiety, but she has not been taking the medication because she "does not want to be hooked on any medications." The patient report she has seen Dr. Camejo and had a camera in her stomach, but did not find anything. The patient does not believe that she is and has not had a period in a year. The patient reports she has been having bowel movements, but they are smaller than normal. Onset Date: 11/04/17 Onset Time: 05:00 Duration: Getting Worse, Intermittent Location: Reports: Upper Extremity, Right Quality: Reports: Other Severity: Moderate Improves with: Reports: None Worsens with: Reports: None Associated Symptoms: Reports: Nausea/Vomiting Abdomen Pain Score (Numeric/FACES): 8 - Related Data Allergies Allergy/AdvReac Type Severity Reaction Status Date / Time amoxicillin [Amoxicillin] Allergy Rash Verified 11/05/17 07:37 Home Meds: Home Meds . [No Known Home Meds] 11/05/17 [History] Past Medical History HEENT History: Reports: Impaired Vision Other HEENT History: wears glasses Cardiovascular History: Reports: Hypertension Respiratory History: Reports: None Gastrointestinal History: Reports: None Genitourinary History: Reports: None [employer] History: Reports: Musculoskeletal History: Reports: None Neurological History: Reports: None Psychiatric History: Reports: Anxiety, Panic Attack Endocrine/Metabolic History: Reports: Obesity/BMI 30+ Hematologic History: Reports: None Immunologic History: Reports: None Oncologic (Cancer) History: Reports: None Dermatologic History: Reports: None - Infectious Disease History Infectious Disease History: Reports: Chicken Pox, MRSA 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 - Past Surgical History Head Surgeries/Procedures: Reports: None GI Surgical History: Reports: Cholecystectomy Social & Family History - Family History Family Medical History: Noncontributory - Tobacco Use Smoking Status *Q: Never Smoker Second Hand Smoke Exposure: No - Caffeine Use Caffeine Use: Reports: None - Recreational Drug Use Recreational Drug Use: No - Sexual History Sexual History: Reports: Sexually Active - Living Situation & Occupation Living situation: Reports: with Significant Other Occupation: Employed ED ROS GENERAL - Review of Systems Review Of Systems: ROS reveals no pertinent complaints other than HPI. ED EXAM, GI/ABD - Physical Exam Exam: See Below Exam Limited By: No Limitations General Appearance: Alert, WD/WN, Moderate Distress Eyes: Bilateral: Normal Appearance, EOMI Ears: Normal External Exam, Normal Canal, Hearing Grossly Normal, Normal TMs Nose: Normal Inspection, Normal Mucosa, No Blood Throat/Mouth: Normal Inspection, Normal Lips, Normal Teeth, Normal Gums, Normal Oropharynx, Normal Voice, No Airway Compromise Head: Atraumatic, Normocephalic Neck: Normal Inspection, Supple, Non-Tender, Full Range of Motion Respiratory/Chest: No Respiratory Distress, Lungs Clear, Normal Breath Sounds, No Accessory Muscle Use, Chest Non-Tender Cardiovascular: Normal Peripheral Pulses, Regular Rate, Rhythm, No Edema, No Gallop, No JVD, No Murmur, No Rub GI/Abdominal Exam: Normal Bowel Sounds, Soft, No Organomegaly, No Distention, No Abnormal Bruit, No Mass, Pelvis Stable, Tender (upper abdomen) (Female) Exam: Deferred Rectal (Female) Exam: Deferred Back Exam: Normal Inspection, Full Range of Motion, NT Extremities: Normal Inspection, Normal Range of Motion, Non-Tender, Normal Capillary Refill, No Pedal Edema Neurological: Alert, Oriented, CN II-XII Intact, Normal Cognition, Normal Gait, Normal Reflexes, No Motor/Sensory Deficits Psychiatric: Anxious Skin Exam: Warm, Dry, Intact, Normal Color, No Rash Lymphatic: No Adenopathy Course - Vital Signs Last Recorded V/S: Last Vital Signs Temp 35.8 C 11/05/17 07:25 Pulse 90 11/05/17 07:25 Resp 24 H 11/05/17 07:25 BP 184/114 H 11/05/17 07:42 Pulse Ox 100 11/05/17 07:25 - Orders/Labs/Meds Orders: Active Orders 24 hr Category Date Time Status AMYLASE [CHEM] Stat Lab 11/05/17 07:38 Ordered COMPREHENSIVE METABOLIC PN,CMP [CHEM] Urgent Lab 11/05/17 07:38 Ordered DRUG SCREEN URINE BIORAD [URCHEM] Stat Lab 11/05/17 07:38 Ordered HCG QUALITATIVE,URINE [URCHEM] Stat Lab 11/05/17 07:38 Ordered LIPASE [CHEM] Stat Lab 11/05/17 07:38 Ordered MAGNESIUM [CHEM] Stat Lab 11/05/17 07:38 Ordered UA W/MICROSCOPIC [URIN] Stat Lab 11/05/17 07:38 Ordered Labs: Laboratory Tests 11/05/17 11/05/17 11/05/17 Range/Units 07:38 07:38 07:38 WBC (5.0-10.0) 10^3/uL RBC (4.2-5.4) 10^6/uL Hgb (12.0-16.0) g/dL Hct (37.0-47.0) % MCV (80-100) fL MCH (27.0-34.0) pg MCHC (33.0-35.0) g/dL Plt Count (150-450) 10^3/uL Neut % (Auto) (42.2-75.2) % Lymph % (Auto) (20.5-50.1) % Wirt % (Auto) (2-8) % Eos % (Auto) (1.0-3.0) % Baso % (Auto) (0.0-1.0) % Urine Color Yellow (YELLOW) Urine Appearance Cloudy (CLEAR) Urine pH 5.5 (5.0-9.0) Ur Specific [place] >= 1.030 (1.005-1.030) Urine Protein 30 H (NEGATIVE) Urine Glucose (UA) Negative (NEGATIVE) Urine Ketones 40 H (NEGATIVE) Urine Occult Blood Small H (NEGATIVE) Urine Nitrite Negative (NEGATIVE) Urine Bilirubin Small H (NEGATIVE) Urine Urobilinogen 0.2 (0.2-1.0) mg/dL Ur Leukocyte Esterase Negative (NEGATIVE) Urine RBC 5-10 H /HPF Urine WBC 0-5 (0-5/HPF) /HPF Ur Epithelial Cells Many H /HPF Urine Bacteria Many H (0-FEW/HPF) /HPF Urine Mucus Many H /LPF Urine HCG, Qual Negative Urine Opiates Screen Negative (NEGATIVE) Ur Oxycodone Screen Negative (NEGATIVE) Urine Methadone Screen Negative (NEGATIVE) Ur Barbiturates Screen Negative (NEGATIVE) U Tricyclic Antidepress Negative (NEGATIVE) Ur Phencyclidine Scrn Negative (NEGATIVE) Ur Amphetamine Screen Negative (NEGATIVE) U Methamphetamines Scrn Negative (NEGATIVE) Urine MDMA Screen Negative (NEGATIVE) U Benzodiazepines Scrn Negative (NEGATIVE) Urine Cocaine Screen Negative (NEGATIVE) U Marijuana (THC) Screen Positive H (NEGATIVE) 11/05/17 Range/Units 07:50 WBC 12.1 H (5.0-10.0) 10^3/uL RBC 5.42 H (4.2-5.4) 10^6/uL Hgb 16.4 H (12.0-16.0) g/dL Hct 47.0 (37.0-47.0) % MCV 86.7 (80-100) fL MCH 30.3 (27.0-34.0) pg MCHC 34.9 (33.0-35.0) g/dL Plt Count 254 (150-450) 10^3/uL Neut % (Auto) 65.5 (42.2-75.2) % Lymph % (Auto) 26.1 (20.5-50.1) % Wirt % (Auto) 6.1 (2-8) % Eos % (Auto) 2.1 (1.0-3.0) % Baso % (Auto) 0.2 (0.0-1.0) % Urine Color (YELLOW) Urine Appearance (CLEAR) Urine pH (5.0-9.0) Ur Specific [place] (1.005-1.030) Urine Protein (NEGATIVE) Urine Glucose (UA) (NEGATIVE) Urine Ketones (NEGATIVE) Urine Occult Blood (NEGATIVE) Urine Nitrite (NEGATIVE) Urine Bilirubin (NEGATIVE) Urine Urobilinogen (0.2-1.0) mg/dL Ur Leukocyte Esterase (NEGATIVE) Urine RBC /HPF Urine WBC (0-5/HPF) /HPF Ur Epithelial Cells /HPF Urine Bacteria (0-FEW/HPF) /HPF Urine Mucus /LPF Urine HCG, Qual Urine Opiates Screen (NEGATIVE) Ur Oxycodone Screen (NEGATIVE) Urine Methadone Screen (NEGATIVE) Ur Barbiturates Screen (NEGATIVE) U Tricyclic Antidepress (NEGATIVE) Ur Phencyclidine Scrn (NEGATIVE) Ur Amphetamine Screen (NEGATIVE) U Methamphetamines Scrn (NEGATIVE) Urine MDMA Screen (NEGATIVE) U Benzodiazepines Scrn (NEGATIVE) Urine Cocaine Screen (NEGATIVE) U Marijuana (THC) Screen (NEGATIVE) Meds: Medications Discontinued Medications Generic Name Dose Route Start Last Admin Trade Name Gloria PRN Reason Stop Dose Admin Sodium Chloride 1,000 mls @ 999 mls/hr 11/05/17 07:32 11/05/17 07:53 Normal Saline IV 11/05/17 08:32 999 mls/hr .BOLUS ONE Administration Metoclopramide HCl 10 mg 11/05/17 08:16 11/05/17 08:21 Reglan IVPUSH 11/05/17 08:17 10 mg ONETIME ONE Administration Ondansetron HCl 4 mg 11/05/17 07:32 11/05/17 07:53 Zofran IV 11/05/17 07:33 4 mg ONETIME ONE Administration - Re-Assessments/Exams Free Text/Narrative Re-Assessment/Exam: 11/05/17 08:32 The patient was advised that our lab was having difficulties running her electrolyte tests and that the sample was sent over to the Clinic Lab. The patient left against medical advice prior to her labs being completed. Departure - Departure Time of Disposition: 08:34 Disposition: Against Medical Advice 07 Clinical Impression: Marijuana use Intractable nausea and vomiting Qualifiers: Vomiting type: unspecified Qualified Code(s): R11.2 - Nausea with vomiting, unspecified - Discharge Information *PRESCRIPTION DRUG MONITORING PROGRAM REVIEWED*: Not Applicable *COPY OF PRESCRIPTION DRUG MONITORING REPORT IN PATIENT ANDRESSA: Not Applicable Forms: ED Department Discharge Care Plan Goals: The patient left after getting a liter of IV fluid, IV Zofran and IV Reglan. The patient did not stay for the completion of her lab tests and the report of her results were received from the lab. - My Orders Last 24 Hours: My Active Orders 11/05/17 07:38 AMYLASE [CHEM] Stat COMPREHENSIVE METABOLIC PN,CMP [CHEM] Urgent DRUG SCREEN URINE BIORAD [URCHEM] Stat HCG QUALITATIVE,URINE [URCHEM] Stat LIPASE [CHEM] Stat MAGNESIUM [CHEM] Stat UA W/MICROSCOPIC [URIN] Stat - Assessment/Plan Last 24 Hours: My Active Orders 11/05/17 07:38 AMYLASE [CHEM] Stat COMPREHENSIVE METABOLIC PN,CMP [CHEM] Urgent DRUG SCREEN URINE BIORAD [URCHEM] Stat HCG QUALITATIVE,URINE [URCHEM] Stat LIPASE [CHEM] Stat MAGNESIUM [CHEM] Stat UA W/MICROSCOPIC [URIN] Stat
[2017-11-05] MEDS ORDERED: Metoclopramide 10 MG/2 ML SDV IVPUSH ONE (08:16)
== END 2017-11-05 08:33 | disposition left against medical advice (07) ==
LOC: DL.ED 07:22
DX: R11.2 Nausea with vomiting, unspecified (principal); R10.10 Upper abdominal pain, unspecified; F12.90 Cannabis use, unspecified, uncomplicated; I10 Essential (primary) hypertension; Z88.1 Allergy status to other antibiotic agents; E66.9 Obesity, unspecified
CPT/HCPCS: 36415; 80053; 80305; 81001; 81025; 82150; 83690; 83735; 85025; 96361; 96374; 96375; 99284; J2405; J2765; J7030

== ENCOUNTER 2019-07-22 18:36 | Emergency (ER) | payer BC, MEDICAID, OTHER ==
[2019-07-22] MEDS ORDERED: Clindamycin HCl 150 MG Cap PO ONE (18:53)
[2019-07-22] MEDS ORDERED: Diphtheria,Pertussis(Acell),Tetanus Vaccine 0.5 ML SDV IM ONE (18:53)
--- NOTE | 2019-07-22 19:00 | EDM.PDOC ---
ED HPI GENERAL MEDICAL PROBLEM - General Chief Complaint: Bite:Animal, Insect Stated Complaint: DOG BITE LEFT LEG THIGH Time Seen by Provider: 07/22/19 18:57 Source of Information: Reports: Patient History Limitations: Reports: No Limitations - History of Present Illness INITIAL COMMENTS - FREE TEXT/NARRATIVE: got bit by brother's dog (UTD with shots) Left Posterior Thigh Pain Score (Numeric/FACES): 8 - Related Data Allergies Allergy/AdvReac Type Severity Reaction Status Date / Time amoxicillin [Amoxicillin] Allergy Rash Verified 07/22/19 18:46 Home Meds: Home Meds . [No Known Home Meds] 11/05/17 [History] Past Medical History HEENT History: Reports: Impaired Vision Other HEENT History: wears glasses Cardiovascular History: Reports: Hypertension Respiratory History: Reports: None Gastrointestinal History: Reports: None Genitourinary History: Reports: None LINOTYPIST History: Reports: Musculoskeletal History: Reports: None Neurological History: Reports: None Psychiatric History: Reports: Anxiety, Panic Attack Endocrine/Metabolic History: Reports: Obesity/BMI 30+ Hematologic History: Reports: None Immunologic History: Reports: None Oncologic (Cancer) History: Reports: None Dermatologic History: Reports: None - Infectious Disease History Infectious Disease History: Reports: Chicken Pox, MRSA 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 - Past Surgical History Head Surgeries/Procedures: Reports: None GI Surgical History: Reports: Cholecystectomy Social & Family History - Family History Family Medical History: Noncontributory - Caffeine Use Caffeine Use: Reports: None - Sexual History Sexual History: Reports: Sexually Active - Living Situation & Occupation Living situation: Reports: with Significant Other Occupation: Employed ED ROS GENERAL - Review of Systems Review Of Systems: Comprehensive ROS is negative, except as noted in HPI. ED EXAM, ANIMAL BITE - Physical Exam Exam: See Below Exam Limited By: No Limitations General Appearance: Alert, WD/WN, No Apparent Distress, Mild Distress, Other ( crying) Ears: Hearing Grossly Normal Throat/Mouth: Normal Voice, No Airway Compromise Head: Atraumatic Neck: Non-Tender, Full Range of Motion Respiratory/Chest: No Respiratory Distress Cardiovascular: Regular Rate, Rhythm GI/Abdominal: Soft, Non-Tender Extremities: Other (left thigh puncture and minor spfl abrasion, nothing suturable. NV wnl) Neurological: Alert, Oriented, Normal Cognition, No Motor/Sensory Deficits, Other (gait limited to pain) Psychiatric: Tearful Skin Exam: Normal Color, Warm/Dry Course - Vital Signs Last Recorded V/S: Last Vital Signs Temp 36.9 C 07/22/19 19:09 Pulse 127 H 07/22/19 19:09 Resp 18 07/22/19 19:09 BP 147/115 H 07/22/19 19:09 Pulse Ox 97 07/22/19 19:09 - Orders/Labs/Meds Orders: Active Orders 24 hr Category Date Time Status Vaccines to be Administered [RC] PER UNIT ROUTINE Care 07/22/19 18:53 Active Meds: Medications Discontinued Medications Generic Name Dose Route Start Last Admin Trade Name Ajayq PRN Reason Stop Dose Admin Clindamycin HCl 300 mg 07/22/19 18:53 07/22/19 18:58 Cleocin PO 07/22/19 18:54 300 mg ONETIME ONE Administration Diphtheria/Tetanus/Acell Pertussis 0.5 ml 07/22/19 18:53 07/22/19 18:59 Adacel IM 07/22/19 18:54 0.5 ml .ONCE ONE Administration Departure - Departure Time of Disposition: 18:59 Disposition: Home, Self-Care 01 Condition: Good Clinical Impression: Dog bite of left thigh without complication Qualifiers: Encounter type: initial encounter Qualified Code(s): S71.152A - Open bite, left thigh, initial encounter - Discharge Information Instructions: Animal Bite, Adult, [id number] Forms: ED Department Discharge Additional Instructions: 1) keep wound clean dry covered 2) wound recheck if looks worse rx given; clindamycin 300mg qid x 40 Sepsis Event Note - Focused Exam Vital Signs: Vital Signs Temp Pulse Resp BP Pulse Ox 07/22/19 19:09 36.9 C 127 H 18 147/115 H 97 Date Exam was Performed: 07/22/19 Time Exam was Performed: 19:50 - My Orders Last 24 Hours: My Active Orders 07/22/19 18:53 Vaccines to be Administered [RC] PER UNIT ROUTINE - Assessment/Plan Last 24 Hours: My Active Orders 07/22/19 18:53 Vaccines to be Administered [RC] PER UNIT ROUTINE
[2019-07-22 19:11] VITALS: BP 147/115; PULSE 127
== END 2019-07-22 19:20 | disposition home or self-care (01) ==
LOC: DL.ED 18:36
DX: S71.152A Open bite, left thigh, initial encounter (principal); I10 Essential (primary) hypertension; E66.9 Obesity, unspecified; Z68.37 Body mass index [BMI] 37.0-37.9, adult; Z88.1 Allergy status to other antibiotic agents; Z23 Encounter for immunization; W54.0XXA Bitten by dog, initial encounter
CPT/HCPCS: 90471; 90715; 99283; A9270